=== PATIENT | male | born 1990 ===

== ENCOUNTER 2016-12-29 21:06 | Emergency (ER) | payer OTHER ==
[2016-12-29 21:25] VITALS: BP 133/74; PULSE 106; RESP 16; TEMP 98.8; O2SAT 97
--- NOTE | 2016-12-29 21:55 | ED PDOC ---
HPI: Skin/Bite Injury Time Seen by Provider: 12/29/16 21:47 Chief Complaint (Nursing): Abnormal Skin Integrity Chief Complaint (Provider): rash History Per: Patient History/Exam Limitations: no limitations Additional Complaint(s): 26yo M in ED for eval lesion noted to behind right ear x 1 eweek with ithcing no drainage, swelling fever chills, admits to cleaning carpet sweating then nothing lesion behind ear. Past Medical History Reviewed: Historical Data, Nursing Documentation, Vital Signs Vital Signs: Last Vital Signs Temp 98.8 F 12/29/16 21:23 Pulse 106 H 12/29/16 21:23 Resp 16 12/29/16 21:23 BP 133/74 12/29/16 21:23 Pulse Ox 97 12/29/16 21:23 - Medical History PMH: No Chronic Diseases - Family History Family History: States: No Known Family Hx - Home Medications Home Medications: Ambulatory Orders Medication Instructions Recorded Erythromycin 0.5% [Erythromycin] 1 applic .ROUTE QID #1 tube 05/06/16 Clotrimazole 1% [Lotrimin AF 1%] 10 applic TOP BID #1 bottle 12/29/16 Fluconazole [Diflucan] 200 mg PO ONCE #4 tab 12/29/16 - Allergies Allergies/Adverse Reactions: Allergies Allergy/AdvReac Type Severity Reaction Status Date / Time No Known Allergies Allergy Verified 05/06/16 18:47 Review of Systems ROS Statement: Except As Marked, All Systems Reviewed And Found Negative Skin: Positive for: Rash Physical Exam - Reviewed Nursing Documentation Reviewed: Yes Vital Signs Reviewed: Yes - Physical Exam Appears: Positive for: Well, Non-toxic, No Acute Distress Head Exam: Positive for: ATRAUMATIC, NORMAL INSPECTION, NORMOCEPHALIC Skin: Positive for: Normal Color, Warm, Rash (round lesion with central clearing raised ertheymatous border-ringworm) Cardiovascular/Chest: Positive for: Regular Rate, Rhythm Respiratory: Positive for: CNT, Normal Breath Sounds Neurologic/Psych: Positive for: Alert, Oriented - ECG O2 Sat by Pulse Oximetry: 97 Medical Decision Making Medical Decision Making: dx: ringworm-tinea corporis plan: fluconzole PO x 4 weeks clotrimiazole cream to area BID f/u with pmd. Disposition - Clinical Impression Clinical Impression: Ringworm - Patient ED Disposition Is Patient to be Admitted: No Counseled Patient/Family Regarding: Diagnosis, Need For Followup, Rx Given - Disposition Disposition: Routine/Home Disposition Time: 21:58 Condition: STABLE Prescriptions: Clotrimazole 1% [Lotrimin AF 1%] 10 applic TOP BID #1 bottle Fluconazole [Diflucan] 200 mg PO ONCE #4 tab Instructions: Tinea Corporis (ED)
== END 2016-12-29 22:06 | disposition home or self-care (01) ==
LOC: H.ER 21:06
DX: B35.4 Tinea corporis (principal)

== ENCOUNTER 2017-01-21 19:07 | Emergency (ER) | payer OTHER ==
[2017-01-21 19:22] VITALS: BP 123/75; PULSE 73; RESP 18; TEMP 97.9; O2SAT 98
--- NOTE | 2017-01-21 19:34 | ED PDOC ---
HPI: Male Pain Time Seen by Provider: 01/21/17 19:33 Chief Complaint (Nursing): Male Genitourinary Chief Complaint (Provider): penile discharge History Per: Patient Additional Complaint(s): 26 year old male presents to ED with penile discharge x 1 day s/p having unprotected intercourse last week. Patient denies any associated nausea, vomiting, abdominal pain, diarrhea or constipation. Past Medical History Reviewed: Historical Data, Nursing Documentation, Vital Signs Vital Signs: Last Vital Signs Temp 97.9 F 01/21/17 19:21 Pulse 73 01/21/17 19:21 Resp 18 01/21/17 19:21 BP 123/75 01/21/17 19:21 Pulse Ox 98 01/21/17 19:21 - Medical History PMH: No Chronic Diseases - Surgical History Surgical History: Appendectomy - Family History Family History: States: No Known Family Hx - Living Arrangements Living Arrangements: With Family - Social History Current smoker - smoking cessation education provided: No Alcohol: None Drugs: Denies - Home Medications Home Medications: Ambulatory Orders Medication Instructions Recorded Erythromycin 0.5% [Erythromycin] 1 applic .ROUTE QID #1 tube 05/06/16 Clotrimazole 1% [Lotrimin AF 1%] 10 applic TOP BID #1 bottle 12/29/16 Fluconazole [Diflucan] 200 mg PO ONCE #4 tab 12/29/16 - Allergies Allergies/Adverse Reactions: Allergies Allergy/AdvReac Type Severity Reaction Status Date / Time No Known Allergies Allergy Verified 01/21/17 19:18 Review of Systems ROS Statement: Except As Marked, All Systems Reviewed And Found Negative Constitutional: Negative for: Fever Gastrointestinal: Negative for: Nausea, Abdominal Pain Genitourinary Male: Positive for: Penile Discharge Physical Exam - Reviewed Nursing Documentation Reviewed: Yes Vital Signs Reviewed: Yes - Physical Exam Appears: Positive for: Well, Non-toxic, No Acute Distress Skin: Negative for: Rash Eye Exam: Positive for: Normal appearance Cardiovascular/Chest: Positive for: Regular Rate, Rhythm Respiratory: Positive for: Normal Breath Sounds Gastrointestinal/Abdominal: Positive for: Soft. Negative for: Tenderness, Distended, Guarding, Rebound Neurologic/Psych: Positive for: Alert, Oriented - ECG O2 Sat by Pulse Oximetry: 98 Pulse Ox Interpretation: Normal Medical Decision Making Medical Decision Makin26 year old with penile discharge Plan: Urine dip Urine culture CHL/GC culture Patient treated empirically for CHl and GC with 1 gram PO zithromax and 250 mg IM rocephin. Patient was counseled regarding safe sex practices and he was referred to clinic for follow up. Disposition - Clinical Impression Clinical Impression: Penile discharge, Possible exposure to STD - Patient ED Disposition Is Patient to be Admitted: No Counseled Patient/Family Regarding: Studies Performed, Diagnosis, Need For Followup - Disposition Referrals: [facility] [Outside] Disposition: Routine/Home Disposition Time: 20:04 Condition: STABLE Additional Instructions: Refrain from intercourse until symptoms resolve. Follow up with clinic in 2-3 days. Instructions: Sexually Transmitted Diseases (ED), Condom Use (ED), Safe Sex (ED )
[2017-01-21] MEDS ORDERED: cefTRIAXone (Rocephin) 250 mg Inj IM STA (20:04)
[2017-01-21] MEDS ORDERED: Sterile Water 10 ML IV ONE (20:24)
[2017-01-21] MEDS ORDERED: cefTRIAXone (Rocephin) 250 mg Inj ONE (20:24)
== END 2017-01-21 20:58 | disposition home or self-care (01) ==
LOC: H.ER 19:07
DX: R36.9 Urethral discharge, unspecified (principal)

== ENCOUNTER 2017-02-09 22:08 | Emergency (ER) | payer SELFPAY ==
[2017-02-09 22:15] VITALS: BP 142/65; PULSE 71; RESP 16; TEMP 98.7; O2SAT 99
[2017-02-09 22:57] LABS: BASO # 0.1 K/uL (0.0-0.2); BASO % 0.7 % (0.0-2.0); EOS # 0.1 K/uL (0.0-0.7); EOS % 1.1 % (0.0-4.0); HEMOGLOBIN 15.9 g/dL (12.0-18.0); LYMPH # 1.6 K/uL (1.0-4.3); LYMPH % 21.9 % (20.0-40.0); MEAN CELL VOLUME 90.8 fl (80.0-94.0); MEAN CORPUSCULAR HEMOGLOBIN 31.3 pg (27.0-31.0); MEAN CORPUSCULAR HGB CONC 34.4 g/dL (33.0-37.0); MEAN PLATELET VOLUME 8.9 fl (7.2-11.7); MONO # 0.6 K/uL (0.0-0.8); MONO % 7.4 % (0.0-10.0); NEUT # 5.2 K/uL (1.8-7.0); NEUT % 68.9 % (50.0-75.0); NRBC % 0.1 % (0.0-0.0); RBC 5.07 Mil/uL (4.40-5.90); RED CELL DISTRIBUTION WIDTH 13.4 % (11.5-14.5); WHITE BLOOD COUNT 7.5 K/uL (4.8-10.8)
[2017-02-09 23:06] LABS: ALB/GLOB RATIO 1.5 (1.0-2.1); ALBUMIN 4.7 g/dL (3.5-5.0); ALT/SGPT 51 U/L (21-72); AST/SGOT 38 U/L (17-59); BLOOD UREA NITROGEN 11 mg/dl (9-20); CALCIUM 9.8 mg/dL (8.4-10.2); GFR AFRICAN-AMERICAN > 60; GFR NON-AFRICAN AMERICAN > 60
--- NOTE | 2017-02-09 23:46 | ED PDOC ---
HPI: General Adult Time Seen by Provider: 02/09/17 22:20 Chief Complaint (Nursing): GI Problem Chief Complaint (Provider): Nausea History Per: Patient History/Exam Limitations: no limitations Onset/Duration Of Symptoms: Days (x2) Current Symptoms Are (Timing): Still Present Additional Complaint(s): Grant Drew is a 26 year old male that presents to the ED with a chief complaint of nausea that he has been experiencing for the past day. Patient states that two days ago he had received and performed unprotected oral sex with a male partner who was known HIV positive. His partner told him that he was "undetectable" and would therefore not infect him. Patient denies any fever , chills, vomiting, diarrhea, abdominal pain, urinary symptoms, penile discharge , or rash. Past Medical History Reviewed: Historical Data, Nursing Documentation, Vital Signs Vital Signs: Last Vital Signs Temp 98.7 F 02/09/17 22:13 Pulse 71 02/09/17 22:13 Resp 16 02/09/17 22:13 BP 142/65 02/09/17 22:13 Pulse Ox 99 02/09/17 23:50 - Medical History PMH: No Chronic Diseases - Surgical History Surgical History: Appendectomy - Family History Family History: States: Unknown Family Hx - Social History Current smoker - smoking cessation education provided: No Alcohol: Social Drugs: Denies - Home Medications Home Medications: Ambulatory Orders Medication Instructions Recorded Erythromycin 0.5% [Erythromycin] 1 applic .ROUTE QID #1 tube 05/06/16 Clotrimazole 1% [Lotrimin AF 1%] 10 applic TOP BID #1 bottle 12/29/16 Fluconazole [Diflucan] 200 mg PO ONCE #4 tab 12/29/16 Emtricitabine/Tenofovir (Tdf) 1 each PO DAILY #28 tablet 02/10/17 [Truvada 200 mg-300 mg Tablet] Ondansetron ODT [Zofran ODT] 1 odt PO Q6 PRN #30 odt 02/10/17 Raltegravir Potassium [Isentress] 400 mg PO BID #56 tab 02/10/17 - Allergies Allergies/Adverse Reactions: Allergies Allergy/AdvReac Type Severity Reaction Status Date / Time No Known Allergies Allergy Verified 01/21/17 19:18 Review of Systems Constitutional: Negative for: Fever, Chills Gastrointestinal: Positive for: Nausea. Negative for: Vomiting, Abdominal Pain , Diarrhea Genitourinary Male: Negative for: Dysuria, Frequency, Hematuria, Penile Discharge, Rash Skin: Negative for: Rash Physical Exam - Reviewed Nursing Documentation Reviewed: Yes Vital Signs Reviewed: Yes - Physical Exam Appears: Positive for: Non-toxic, No Acute Distress (Patient is in mild anxious distress) Head Exam: Positive for: ATRAUMATIC, NORMOCEPHALIC Skin: Positive for: Normal Color, Warm Cardiovascular/Chest: Positive for: Regular Rate, Rhythm. Negative for: Murmur Respiratory: Positive for: Normal Breath Sounds. Negative for: Wheezing Gastrointestinal/Abdominal: Positive for: Normal Exam, Soft. Negative for: Tenderness Male Genital Exam: Positive for: normal genitalia Neurologic/Psych: Positive for: Alert, Oriented. Negative for: Motor/Sensory Deficits - Laboratory Results Result Diagrams: 02/09/17 22:45 02/09/17 22:45 - ECG O2 Sat by Pulse Oximetry: 99 (RA) Pulse Ox Interpretation: Normal Medical Decision Making Medical Decision Making: Impression: Exposure to STDs Plan: * Urine Dipstick * Chlamydia/GC RNA * HIV Rapid * Reevaluation Discussed with patient that he is at risk for all STDs, including HIV. Educated patient on signs and symptoms of HIV, as well as educated on post-exposure prophylaxis. Pending labs. Labs demonstrate no clinically significant lab abnormalities Rocephin/azithro given for possible STDs. PEP prescribed as pt still not sure if he wants to take. Informed that needs to be taken within 72 hours of exposure for full effect. Scribe Attestation: Documented by Eloise Montoya, acting as a scribe for Yane Romeo MD. Provider Scribe Attestation: All medical record entries made by the Scribe were at my direction and personally dictated by me. I have reviewed the chart and agree that the record accurately reflects my personal performance of the history, physical exam, medical decision making, and the department course for this patient. I have also personally directed, reviewed, and agree with the discharge instructions and disposition. Disposition - Clinical Impression Clinical Impression: HIV exposure, Possible exposure to STD Counseled Patient/Family Regarding: Studies Performed, Diagnosis, Need For Followup, Rx Given - Disposition Referrals: Muriel Drew MD [Family Provider] - [facility] [Outside] Disposition: Routine/Home Disposition Time: 00:10 Condition: STABLE Additional Instructions: FOLLOW UP WITH DR DREW OR THE CLINIC BY THE END OF THE WEEK FOR REEVALUATION Prescriptions: Emtricitabine/Tenofovir (Tdf) [Truvada 200 mg-300 mg Tablet] 1 each PO DAILY # 28 tablet Ondansetron ODT [Zofran ODT] 1 odt PO Q6 PRN #30 odt PRN Reason: Nausea/Vomiting Raltegravir Potassium [Isentress] 400 mg PO BID #56 tab Instructions: Postexposure Prophylaxis (ED), Safe Sex (ED) Forms: [employer] (Slovenian)
[2017-02-10] MEDS ORDERED: cefTRIAXone (Rocephin) 250 mg Inj IM ONE (00:02)
[2017-02-10] MEDS ORDERED: cefTRIAXone (Rocephin) 250 mg Inj ONE (00:20)
== END 2017-02-10 00:59 | disposition home or self-care (01) ==
LOC: H.ER 22:08
DX: Z20.6 Contact with and (suspected) exposure to human immunodeficiency virus [HIV] (principal)
CPT/HCPCS: 80053; 85025; 87390; 87491; 87591; 96372; 99282; J0696

== ENCOUNTER 2017-05-05 18:40 | Emergency (ER) | payer MEDICAID, OTHER ==
[2017-05-05 18:52] VITALS: BP 136/79; PULSE 82; RESP 16; TEMP 97.1; O2SAT 100
[2017-05-05] MEDS ORDERED: cefTRIAXone (Rocephin) 250 mg Inj IM ONE (19:53)
--- NOTE | 2017-05-05 19:53 | ED PDOC ---
HPI: Abdomen Time Seen by Provider: 05/05/17 19:21 Chief Complaint (Nursing): GI Problem Chief Complaint (Provider): RECTAL PAIN History Per: Patient (27 Y/O MALE HERE WITH RECTAL PAIN AND DISCHARGE YESTERDAY. ADMITS ANAL SEX. NO PRIOR H/O STD. DENIES ANY FEVERS/CHILLS.) Past Medical History Reviewed: Historical Data, Nursing Documentation, Vital Signs Vital Signs: Last Vital Signs Temp 97.1 F L 05/05/17 18:49 Pulse 82 05/05/17 18:49 Resp 16 05/05/17 18:49 BP 136/79 05/05/17 18:49 Pulse Ox 100 05/05/17 18:49 - Surgical History Surgical History: Appendectomy - Family History Family History: States: Unknown Family Hx - Home Medications Home Medications: Ambulatory Orders Medication Instructions Recorded Erythromycin 0.5% [Erythromycin] 1 applic .ROUTE QID #1 tube 05/06/16 Clotrimazole 1% [Lotrimin AF 1%] 10 applic TOP BID #1 bottle 12/29/16 Fluconazole [Diflucan] 200 mg PO ONCE #4 tab 12/29/16 Emtricitabine/Tenofovir (Tdf) 1 each PO DAILY #28 tablet 02/10/17 [Truvada 200 mg-300 mg Tablet] Ondansetron ODT [Zofran ODT] 1 odt PO Q6 PRN #30 odt 02/10/17 Raltegravir Potassium [Isentress] 400 mg PO BID #56 tab 02/10/17 - Allergies Allergies/Adverse Reactions: Allergies Allergy/AdvReac Type Severity Reaction Status Date / Time No Known Allergies Allergy Verified 05/05/17 18:49 Review of Systems ROS Statement: Except As Marked, All Systems Reviewed And Found Negative Gastrointestinal: Positive for: Rectal Pain Genitourinary Male: Positive for: Other Physical Exam - Reviewed Nursing Documentation Reviewed: Yes Vital Signs Reviewed: Yes - Physical Exam Appears: Positive for: Well, Non-toxic, No Acute Distress Head Exam: Positive for: ATRAUMATIC, NORMAL INSPECTION, NORMOCEPHALIC Skin: Positive for: Normal Color, Warm, DRY Eye Exam: Positive for: EOMI, Normal appearance, PERRL ENT: Positive for: Normal ENT Inspection Neck: Positive for: Normal, Painless ROM Cardiovascular/Chest: Positive for: Regular Rate, Rhythm Respiratory: Positive for: CNT, Normal Breath Sounds Gastrointestinal/Abdominal: Positive for: Normal Exam, Bowel Sounds, Soft Back: Positive for: Normal Inspection Rectal: Positive for: Other (NO HEMORRHOIDS. ONE SMALL SOLITARY ULCER NOTED BY RECTUM) Extremity: Positive for: Normal ROM Neurologic/Psych: Positive for: Alert, Oriented - ECG O2 Sat by Pulse Oximetry: 100 - Progress ED Course And Treament: WILL SEND RPR/URINE GC/ GC SWAB OF RECTUM WILL GIVE ROCEPHIN 250 MG IM X 1 DOSE ZITHROMAX 1 GM TAB PO X 1 DOSE Disposition - Clinical Impression Clinical Impression: Skin ulcer - Patient ED Disposition Is Patient to be Admitted: No - Disposition Referrals: [facility] [Outside] Disposition: Routine/Home Disposition Time: 19:55 Condition: FAIR Instructions: Rectal Pain (ED)
[2017-05-05] MEDS ORDERED: cefTRIAXone (Rocephin) 250 mg Inj ONE (20:12)
== END 2017-05-05 20:25 | disposition home or self-care (01) ==
LOC: H.ER 18:40
DX: K62.6 Ulcer of anus and rectum (principal)
CPT/HCPCS: 86592; 87081; 87491; 87591; 96372; 99282; J0696

== ENCOUNTER 2017-07-12 13:55 | Emergency (ER) | payer MEDICAID ==
[2017-07-12 14:04] VITALS: BP 118/44; PULSE 72; RESP 16; TEMP 98; O2SAT 100
--- NOTE | 2017-07-12 14:54 | ED PDOC ---
HPI: Male Pain Time Seen by Provider: 07/12/17 14:05 Chief Complaint (Nursing): Male Genitourinary Chief Complaint (Provider): LEsions on penis, 1 week History Per: Patient History/Exam Limitations: no limitations Onset/Duration Of Symptoms: Days Current Symptoms Are (Timing): Still Present Severity: None Additional Complaint(s): Pt denies pain, itchiness, etc. Pt is sexually active with men and women. Pt reports always using protection during sexual activity. No fever/chills. No discharge Past Medical History Reviewed: Historical Data, Nursing Documentation, Vital Signs Vital Signs: Last Vital Signs Temp 98.0 F 07/12/17 14:03 Pulse 72 07/12/17 14:03 Resp 16 07/12/17 14:03 BP 118/44 L 07/12/17 14:03 Pulse Ox 100 07/12/17 14:03 - Medical History PMH: No Chronic Diseases - Surgical History Surgical History: Appendectomy - Family History Family History: States: Unknown Family Hx - Living Arrangements Living Arrangements: With Family - Social History Current smoker - smoking cessation education provided: No - Home Medications Home Medications: Ambulatory Orders Medication Instructions Recorded Erythromycin 0.5% [Erythromycin] 1 applic .ROUTE QID #1 tube 05/06/16 Clotrimazole 1% [Lotrimin AF 1%] 10 applic TOP BID #1 bottle 12/29/16 Fluconazole [Diflucan] 200 mg PO ONCE #4 tab 12/29/16 Emtricitabine/Tenofovir (Tdf) 1 each PO DAILY #28 tablet 02/10/17 [Truvada 200 mg-300 mg Tablet] Ondansetron ODT [Zofran ODT] 1 odt PO Q6 PRN #30 odt 02/10/17 Raltegravir Potassium [Isentress] 400 mg PO BID #56 tab 02/10/17 Mupirocin 2% Ointment [Bactroban 1 appl TP BID #1 tube 07/12/17 Ointment] - Allergies Allergies/Adverse Reactions: Allergies Allergy/AdvReac Type Severity Reaction Status Date / Time No Known Allergies Allergy Verified 05/05/17 18:49 Review of Systems ROS Statement: Except As Marked, All Systems Reviewed And Found Negative Constitutional: Negative for: Fever, Chills Genitourinary Male: Positive for: Other Physical Exam - Reviewed Nursing Documentation Reviewed: Yes Vital Signs Reviewed: Yes - Physical Exam Appears: Positive for: Well, Non-toxic, No Acute Distress Head Exam: Positive for: ATRAUMATIC, NORMAL INSPECTION, NORMOCEPHALIC Skin: Positive for: Warm. Negative for: Normal Color (Pearly papules at the ridge of the [place] ) Eye Exam: Positive for: Normal appearance ENT: Positive for: Normal ENT Inspection Neck: Positive for: Normal, Painless ROM Respiratory: Negative for: Accessory Muscle Use Male Genital Exam: Negative for: normal genitalia (See skin) Back: Positive for: Normal Inspection Extremity: Positive for: Normal ROM Neurologic/Psych: Positive for: Alert, Oriented - ECG O2 Sat by Pulse Oximetry: 100 Medical Decision Making Medical Decision Making: Urine sent to lab. Pt states he had labs completed today. He has f.u appointment in 1 week with PMD for results. Disposition - Clinical Impression Clinical Impression: Penile lesion - Patient ED Disposition Is Patient to be Admitted: No Counseled Patient/Family Regarding: Diagnosis, Need For Followup - Disposition Disposition: Routine/Home Disposition Time: 14:35 Condition: GOOD Prescriptions: Mupirocin 2% Ointment [Bactroban Ointment] 1 appl TP BID #1 tube Instructions: Mupirocin (On the skin) Forms: [employer] (Kuwaiti)
== END 2017-07-12 15:20 | disposition home or self-care (01) ==
LOC: H.ER 13:55
DX: N50.9 Disorder of male genital organs, unspecified (principal)

== ENCOUNTER 2017-09-07 14:52 | Emergency (ER) | payer MEDICAID, OTHER ==
[2017-09-07 15:06] VITALS: BP 126/74; PULSE 81; RESP 19; TEMP 98.6; O2SAT 100
--- NOTE | 2017-09-07 16:03 | ED PDOC ---
HPI: Dental Pain/Injury Time Seen by Provider: 09/07/17 15:08 Chief Complaint (Nursing): Dental Pain Chief Complaint (Provider): Dental Pain History Per: Patient History/Exam Limitations: no limitations Onset/Duration Of Symptoms: Days (x4) Current Symptoms Are (Timing): Still Present Additional Complaint(s): 27 year old male presents to the emergency department for an evaluation of diffuse lip pain and dryness ongoing for 4 days status post oral sex. Denied prior episodes. Patient concerned for STIs. PMD: Muriel Mccarthy MD Past Medical History Reviewed: Historical Data, Nursing Documentation, Vital Signs Vital Signs: Last Vital Signs Temp 98.6 F 09/07/17 15:02 Pulse 81 09/07/17 15:02 Resp 19 09/07/17 15:02 BP 126/74 09/07/17 15:02 Pulse Ox 100 09/07/17 15:02 - Medical History PMH: No Chronic Diseases - Surgical History Surgical History: Appendectomy - Family History Family History: States: Unknown Family Hx - Social History Current smoker - smoking cessation education provided: No Alcohol: Social Drugs: Denies - Home Medications Home Medications: Ambulatory Orders Medication Instructions Recorded Erythromycin 0.5% [Erythromycin] 1 applic .ROUTE QID #1 tube 05/06/16 Clotrimazole 1% [Lotrimin AF 1%] 10 applic TOP BID #1 bottle 12/29/16 Fluconazole [Diflucan] 200 mg PO ONCE #4 tab 12/29/16 Emtricitabine/Tenofovir (Tdf) 1 each PO DAILY #28 tablet 02/10/17 [Truvada 200 mg-300 mg Tablet] Ondansetron ODT [Zofran ODT] 1 odt PO Q6 PRN #30 odt 02/10/17 Raltegravir Potassium [Isentress] 400 mg PO BID #56 tab 02/10/17 Mupirocin 2% Ointment [Bactroban 1 appl TP BID #1 tube 07/12/17 Ointment] - Allergies Allergies/Adverse Reactions: Allergies Allergy/AdvReac Type Severity Reaction Status Date / Time No Known Allergies Allergy Verified 05/05/17 18:49 Review of Systems ROS Statement: Except As Marked, All Systems Reviewed And Found Negative ENT: Positive for: Other (diffuse lip pain and dryness) Physical Exam - Reviewed Nursing Documentation Reviewed: Yes Vital Signs Reviewed: Yes - Physical Exam Appears: Positive for: Well, Non-toxic, No Acute Distress ENT: Positive for: Other (diffuse dry lips with small fissure to right lower lip without ulcers noted) - ECG O2 Sat by Pulse Oximetry: 100 (RA) Pulse Ox Interpretation: Normal Medical Decision Making Medical Decision Making: Initial Impression: Dry lips Time: 1551 --Upon provider evaluation, patient is feeling better, medically stable and requires no further treatment in the ED at this time. Patient will be discharged home, advised to get tested for STIs with PMD and to use petroleum jelly-based products for dryness. Counseling was provided and all questions were answered regarding diagnosis. There is agreement to discharge plan. Return if symptoms persist or worsen. Clinical Impression: Dry lips Scribe Attestation: Documented by Susan Murray, acting as a scribe for Ariana Aguilar PA-C. Provider Scribe Attestation: All medical record entries made by the Scribe were at my direction and personally dictated by me. I have reviewed the chart and agree that the record accurately reflects my personal performance of the history, physical exam, medical decision making, and the department course for this patient. I have also personally directed, reviewed, and agree with the discharge instructions and disposition. Disposition - Clinical Impression Clinical Impression: Dry lips - Patient ED Disposition Is Patient to be Admitted: No Counseled Patient/Family Regarding: Diagnosis, Need For Followup - Disposition Referrals: Muriel Mccarthy MD [Primary Care Provider] - Disposition: Routine/Home Disposition Time: 15:51 Condition: STABLE Instructions: Burning Mouth Syndrome Forms: [employer] (Bengali), [facility] ED School/Work Excuse
== END 2017-09-07 15:51 | disposition home or self-care (01) ==
LOC: SUPCPDRO 14:52 → H.ER 14:52
DX: K30 Functional dyspepsia (principal)

== ENCOUNTER 2018-06-05 16:16 | Emergency (ER) | payer OTHER ==
--- NOTE | 2018-06-05 18:47 | ED PDOC ---
HPI: Psych/Substance Abuse Time Seen by Provider: 06/05/18 16:25 Chief Complaint (Nursing): Substance Abuse Chief Complaint (Provider): intoxication ED Caveat: Intoxicated Additional Complaint(s): Found sleeping and difficult to rouse with slurred speech. Offers no complaints and wants to know why he is here. Past Medical History Reviewed: Historical Data, Nursing Documentation, Vital Signs Vital Signs: Last Vital Signs Temp 98.1 F 06/05/18 16:23 Pulse 92 H 06/05/18 16:23 Resp 20 06/05/18 16:23 BP 114/68 06/05/18 16:23 Pulse Ox 99 06/05/18 16:23 - Medical History PMH: No Chronic Diseases - Surgical History Surgical History: Appendectomy - Family History Family History: States: Unknown Family Hx - Social History Drugs: Denies - Immunization History Hx Influenza Vaccination: Yes Hx Pneumococcal Vaccination: Yes - Home Medications Home Medications: Ambulatory Orders Medication Instructions Recorded RX: Erythromycin 0.5% 1 applic .ROUTE QID #1 tube 05/06/16 [Erythromycin] Fluconazole [Diflucan] 200 mg PO ONCE #4 tab 12/29/16 RX: Clotrimazole 1% [Lotrimin AF 10 applic TOP BID #1 bottle 12/29/16 1%] Ondansetron ODT [Zofran ODT] 1 odt PO Q6 PRN #30 odt 02/10/17 RX: Emtricitabine/Tenofovir (Tdf) 1 each PO DAILY #28 tablet 02/10/17 [Truvada 200 mg-300 mg Tablet] RX: Raltegravir Potassium 400 mg PO BID #56 tab 02/10/17 [Isentress] Mupirocin 2% Ointment [Bactroban 1 appl TP BID #1 tube 07/12/17 Ointment] RX: No Known Home Med 10/10/17 Ibuprofen [Motrin] 600 mg PO TID PRN #15 tab 12/27/17 - Allergies Allergies/Adverse Reactions: Allergies Allergy/AdvReac Type Severity Reaction Status Date / Time No Known Allergies Allergy Verified 06/05/18 16:23 Review of Systems ROS Statement: Except As Marked, All Systems Reviewed And Found Negative Physical Exam - Reviewed Nursing Documentation Reviewed: Yes Vital Signs Reviewed: Yes - Physical Exam Appears: Positive for: No Acute Distress Head Exam: Positive for: ATRAUMATIC, NORMOCEPHALIC Skin: Positive for: Warm, Dry Eye Exam: Positive for: EOMI, Conjunctival injection Neck: Positive for: Painless ROM, Supple Cardiovascular/Chest: Positive for: Regular Rate, Rhythm. Negative for: Murmur Respiratory: Positive for: Normal Breath Sounds. Negative for: Respiratory Distress Gastrointestinal/Abdominal: Positive for: Soft. Negative for: Tenderness Rectal: Positive for: Deferred Extremity: Positive for: Normal ROM. Negative for: Deformity Neurologic/Psych: Positive for: Other (slurred speech). Negative for: Alert (excessively lethargic, unable to maintain alertness without continuous stimulation), Oriented, Motor/Sensory Deficits - ECG O2 Sat by Pulse Oximetry: 99 - Progress ED Course And Treament: Pt found to have elevated BAL. Observed for clinical sobriety. Re-evaluation Time: 19:00 Condition: Improved (Ambulating without difficulty. No signs of withdrawal. Oriented.) Disposition - Clinical Impression Clinical Impression: Alcohol intoxication - Disposition Referrals: Alcoholics Anonymous [Outside] Disposition: Routine/Home Disposition Time: 19:33 Condition: IMPROVED Instructions: Alcohol Abuse and Alcoholism (DC)
[2018-06-05 19:37] VITALS: BP 118/75; PULSE 86; RESP 18; TEMP 97
[2018-06-08 15:20] VITALS: O2SAT 99
== END 2018-06-05 19:45 | disposition home or self-care (01) ==
LOC: H.ER 16:16
DX: F10.129 Alcohol abuse with intoxication, unspecified (principal)

== ENCOUNTER 2018-08-15 21:23 | Emergency (ER) | payer SELFPAY ==
[2018-08-15 21:43] VITALS: BP 162/96; PULSE 84; RESP 18; TEMP 98.5; O2SAT 99
[2018-08-15] MEDS ORDERED: cefTRIAXone (Rocephin) 250 mg Inj IM ONE (21:53)
--- NOTE | 2018-08-15 21:56 | ED PDOC ---
HPI: General Adult Time Seen by Provider: 08/15/18 21:54 Chief Complaint (Nursing): Male Genitourinary Chief Complaint (Provider): std testing History Per: Patient (28 y/o male here for treatment and testing of gonorrhea. States he found out that his partner is positive for gonorrhea. Denies any symptoms or other illness.) Past Medical History Reviewed: Historical Data, Nursing Documentation, Vital Signs Vital Signs: Last Vital Signs Temp 98.5 F 08/15/18 21:40 Pulse 84 08/15/18 21:40 Resp 18 08/15/18 21:40 BP 162/96 H 08/15/18 21:40 Pulse Ox 99 08/15/18 21:40 - Surgical History Surgical History: Appendectomy - Family History Family History: States: Unknown Family Hx - Immunization History Hx Influenza Vaccination: Yes Hx Pneumococcal Vaccination: Yes - Home Medications Home Medications: Ambulatory Orders Medication Instructions Recorded Erythromycin 0.5% [Erythromycin] 1 applic .ROUTE QID #1 tube 05/06/16 Clotrimazole 1% [Lotrimin AF 1%] 10 applic TOP BID #1 bottle 12/29/16 Fluconazole [Diflucan] 200 mg PO ONCE #4 tab 12/29/16 Emtricitabine/Tenofovir (Tdf) 1 each PO DAILY #28 tablet 02/10/17 [Truvada 200 mg-300 mg Tablet] Ondansetron ODT [Zofran ODT] 1 odt PO Q6 PRN #30 odt 02/10/17 Raltegravir Potassium [Isentress] 400 mg PO BID #56 tab 02/10/17 Mupirocin 2% Ointment [Bactroban 1 appl TP BID #1 tube 07/12/17 Ointment] No Known Home Med 10/10/17 Ibuprofen [Motrin] 600 mg PO TID PRN #15 tab 12/27/17 - Allergies Allergies/Adverse Reactions: Allergies Allergy/AdvReac Type Severity Reaction Status Date / Time No Known Allergies Allergy Verified 06/05/18 16:23 Review of Systems ROS Statement: Except As Marked, All Systems Reviewed And Found Negative Physical Exam - Reviewed Nursing Documentation Reviewed: Yes Vital Signs Reviewed: Yes - Physical Exam Appears: Positive for: Well, Non-toxic, No Acute Distress Head Exam: Positive for: ATRAUMATIC, NORMAL INSPECTION, NORMOCEPHALIC Skin: Positive for: Normal Color, Warm, DRY Eye Exam: Positive for: EOMI, Normal appearance, PERRL ENT: Positive for: Normal ENT Inspection Neck: Positive for: Normal, Painless ROM Cardiovascular/Chest: Positive for: Regular Rate, Rhythm Respiratory: Positive for: CNT, Normal Breath Sounds Gastrointestinal/Abdominal: Positive for: Normal Exam, Soft Back: Positive for: Normal Inspection Extremity: Positive for: Normal ROM Neurologic/Psych: Positive for: Alert, Oriented - ECG O2 Sat by Pulse Oximetry: 99 - Progress ED Course And Treament: Rocephin 250mg IM x 1 dose Zithromax 1 gm po x 1 dose Disposition - Clinical Impression Clinical Impression: Possible exposure to STD - Patient ED Disposition Is Patient to be Admitted: No - Disposition Referrals: [facility] [Outside] Disposition: Routine/Home Disposition Time: 21:56 Condition: FAIR Instructions: Screening for Sexually Transmitted Infections
[2018-08-15] MEDS ORDERED: cefTRIAXone (Rocephin) 250 mg Inj ONE (21:59)
[2018-08-15] MEDS ORDERED: Sterile Water 10 ML IV ONE (22:03)
== END 2018-08-15 22:30 | disposition home or self-care (01) ==
LOC: H.ER 21:23
DX: Z20.2 Contact with and (suspected) exposure to infections with a predominantly sexual mode of transmission (principal)
CPT/HCPCS: 87086; 96372; 99282; J0696

== ENCOUNTER 2018-09-27 03:15 | Emergency (ER) | payer SELFPAY ==
[2018-09-27 03:26] VITALS: BP 149/113; PULSE 110; RESP 16; TEMP 98.6; O2SAT 98
--- NOTE | 2018-09-27 03:38 | ED PDOC ---
HPI: Psych/Substance Abuse Time Seen by Provider: 09/27/18 03:29 Chief Complaint (Nursing): Alcohol Ingestion Chief Complaint (Provider): Alcohol Ingestion History Per: Patient History/Exam Limitations: no limitations Onset/Duration Of Symptoms: Unknown Current Symptoms Are (Timing): Still Present Suicide/Self Injury Attempted (Context): None Modifying Factor(s): None Additional Complaint(s): 28 y/o male with no significant PMHx brought in by EMS for evaluation of possible alcohol intoxication. Patient offers no medical complaints at this time. PMD: none provided Past Medical History Reviewed: Historical Data, Nursing Documentation, Vital Signs Vital Signs: Last Vital Signs Temp 98.6 F 09/27/18 03:19 Pulse 110 H 09/27/18 03:19 Resp 16 09/27/18 03:19 BP 149/113 H 09/27/18 03:19 Pulse Ox 98 09/27/18 03:19 - Medical History PMH: No Chronic Diseases - Surgical History Surgical History: Appendectomy - Family History Family History: States: Unknown Family Hx - Social History Alcohol: Social - Immunization History Hx Influenza Vaccination: Yes Hx Pneumococcal Vaccination: Yes - Home Medications Home Medications: Ambulatory Orders Medication Instructions Recorded Erythromycin 0.5% [Erythromycin] 1 applic .ROUTE QID #1 tube 05/06/16 Clotrimazole 1% [Lotrimin AF 1%] 10 applic TOP BID #1 bottle 12/29/16 Fluconazole [Diflucan] 200 mg PO ONCE #4 tab 12/29/16 Emtricitabine/Tenofovir (Tdf) 1 each PO DAILY #28 tablet 02/10/17 [Truvada 200 mg-300 mg Tablet] Ondansetron ODT [Zofran ODT] 1 odt PO Q6 PRN #30 odt 02/10/17 Raltegravir Potassium [Isentress] 400 mg PO BID #56 tab 02/10/17 Mupirocin 2% Ointment [Bactroban 1 appl TP BID #1 tube 07/12/17 Ointment] No Known Home Med 10/10/17 Ibuprofen [Motrin] 600 mg PO TID PRN #15 tab 12/27/17 - Allergies Allergies/Adverse Reactions: Allergies Allergy/AdvReac Type Severity Reaction Status Date / Time No Known Allergies Allergy Verified 06/05/18 16:23 Review of Systems ROS Statement: Except As Marked, All Systems Reviewed And Found Negative Psych: Positive for: Other (possible alcohol intoxication) Physical Exam - Reviewed Nursing Documentation Reviewed: Yes Vital Signs Reviewed: Yes - Physical Exam Appears: Positive for: No Acute Distress Head Exam: Positive for: ATRAUMATIC, NORMOCEPHALIC Skin: Positive for: Normal Color Eye Exam: Positive for: Normal appearance Neck: Positive for: Normal Cardiovascular/Chest: Negative for: Bradycardia, Tachycardia Respiratory: Negative for: Accessory Muscle Use, Respiratory Distress Extremity: Positive for: Normal ROM. Negative for: Deformity Neurological/Psych: Positive for: Awake, Alert, Oriented (x3), Gait (steady), Other (normal fluent speech) - ECG O2 Sat by Pulse Oximetry: 98 (RA) Pulse Ox Interpretation: Normal Medical Decision Making Medical Decision Making: Time: 335 Impression: 28 y/o male brought in by EMS for possible alcohol intoxication Plan: -- Patient declining any medical care at this time stating he was made to come to the ER by EMS. Patient requesting to be discharged home. -- On exam, patient appears to be awake, alert and oriented (x3), walking with a steady gait and speaking full clear sentences. Patient is stable for discharge home. Scribe Attestation: Documented by Maicol Germain, acting as a scribe Wayne Goldberg MD. Provider Scribe Attestation: All medical record entries made by the Scribe were at my direction and personally dictated by me. I have reviewed the chart and agree that the record accurately reflects my personal performance of the history, physical exam, medical decision making, and the department course for this patient. I have also personally directed, reviewed, and agree with the discharge instructions and disposition. Disposition - Clinical Impression Clinical Impression: Alcohol use - Patient ED Disposition Is Patient to be Admitted: No Counseled Patient/Family Regarding: Studies Performed, Diagnosis - Disposition Disposition: Routine/Home Disposition Time: 03:36 Condition: STABLE Instructions: Alcohol Use - When Is Drinking a Problem? Forms: [facility] ([place])
== END 2018-09-27 03:40 | disposition home or self-care (01) ==
LOC: H.ER 03:15
DX: F10.10 Alcohol abuse, uncomplicated (principal)